=== PATIENT | male | born 1980 | race African-American/Black ===

== ENCOUNTER 2018-12-08 00:14 | Emergency (ER) | payer SELFPAY | END 2018-12-08 00:45 | disposition home or self-care (01) | LOC: ERS 00:14 | DX: L90.9 Atrophic disorder of skin, unspecified (principal); F17.210 Nicotine dependence, cigarettes, uncomplicated | CPT/HCPCS: 99282 ==

== ENCOUNTER 2019-05-10 13:19 | Emergency (ER) | payer SELFPAY ==
--- NOTE | 2019-05-10 13:41 | RAD ---
Exam:4 views right hand HISTORY: Pain. Injury. COMPARISON: None FINDINGS: Joint spaces are preserved. No fracture. No cortical irregularity or periosteal reaction. IMPRESSION: No fracture
--- NOTE | 2019-05-10 14:24 | RAD ---
RADIOGRAPH RIGHTWRIST 3 VIEWS: DATE: 05/10/2019 HISTORY: 39-year-old male with blunt trauma and pain in right wrist. FINDINGS: No fracture is identified. However, if there is snuffbox tenderness following trauma that suggests an occult scaphoid fracture, then the general recommendation is immobilization and follow-up imaging in 5-10 days. Alignment is normal. Joint spaces are maintained without erosions or large osteophytes. There are no abnormal soft tissue calcifications. No evidence of periostitis, permeative lesion, osteolytic lesion, or osteoblastic lesion. IMPRESSION: Normal radiograph of wrist.
[2019-05-10] MEDS ORDERED: Ketorolac Tromethamine 60 MG/2 ML VIAL ONE (14:45)
== END 2019-05-10 15:10 | disposition home or self-care (01) ==
LOC: ERS 13:19
DX: S66.901A Unspecified injury of unspecified muscle, fascia and tendon at wrist and hand level, right hand, initial encounter (principal); F17.210 Nicotine dependence, cigarettes, uncomplicated; W20.8XXA Other cause of strike by thrown, projected or falling object, initial encounter
CPT/HCPCS: 96372; J1885

== ENCOUNTER 2019-10-26 09:08 | Emergency (ER) | payer SELFPAY ==
--- NOTE | 2019-10-26 09:53 | ULT ---
Exam: Soft tissue ultrasound HISTORY: Mass in the antecubital fossa COMPARISON: None FINDINGS: Targeted sonographic imaging of the region of concern demonstrates a mixed echotexture mass with well -circumscribed margins measuring 3.6 x 2.9 x 1.0 cm. There is a central hyperechoic focus. There is no evidence of vascular flow IMPRESSION: Nonvascular soft tissue mass in the antecubital fossa, corresponding to the region of con cern. Focus of hematoma or phlegmonous change are differential considerations. Appearance does not entirely correspond to a enlarged lymph node.
[2019-10-26] MEDS ORDERED: Lidocaine 1% w/Epinephrine 1:100K 20 ML VIAL ONE (09:58)
== END 2019-10-26 10:51 | disposition home or self-care (01) ==
LOC: ERS 09:08
DX: L72.3 Sebaceous cyst (principal); F17.210 Nicotine dependence, cigarettes, uncomplicated
CPT/HCPCS: 10060; 76999

== ENCOUNTER 2019-11-29 22:25 | Emergency (ER) | payer SELFPAY ==
[2019-11-29] MEDS ORDERED: Ketorolac Tromethamine 30 MG/ML VIAL ONE (22:45)
[2019-11-29] MEDS ORDERED: Cyclobenzaprine 10 MG TAB ONE (22:45)
== END 2019-11-29 22:53 | disposition home or self-care (01) ==
LOC: ERS 22:25
DX: S43.401A Unspecified sprain of right shoulder joint, initial encounter (principal); F17.210 Nicotine dependence, cigarettes, uncomplicated; X58.XXXA Exposure to other specified factors, initial encounter
CPT/HCPCS: 99283; J1885